=== PATIENT | male | born 1985 | race Two or more races ===

== ENCOUNTER 2023-10-08 23:34 | Emergency (ER) | payer MEDICAID, OTHER ==
[~2023-10-08] VITALS: Ht 170.2 cm; Wt 90.7 kg
[2023-10-09 00:09] VITALS: BP 130/95; PULSE 58; RESP 16; TEMP 98.1
[2023-10-09] MEDS ORDERED: AZIT-43 PO (02:19)
[2023-10-09] MEDS ORDERED: PRED20TA2 PO (02:19)
[2023-10-09] MEDS ORDERED: ALBUAER3 IN (02:27)
[2023-10-09 02:47] VITALS: O2SAT 97
== END 2023-10-09 03:21 | disposition home or self-care (01) ==
LOC: ER 23:34
DX: J06.9 Acute upper respiratory infection, unspecified (principal); R07.89 Other chest pain; I10 Essential (primary) hypertension; F17.210 Nicotine dependence, cigarettes, uncomplicated; Z90.49 Acquired absence of other specified parts of digestive tract
CPT/HCPCS: 71045